=== PATIENT | female | born 1965 | race Caucasian/White ===

== ENCOUNTER → 2016-10-11 | Outpatient (CLI) | payer OTHER | LOC: FIMAGING 15:53 | DX: Z12.31 Encounter for screening mammogram for malignant neoplasm of breast (principal); Z92.0 Personal history of contraception | CPT/HCPCS: G0202 ==

== ENCOUNTER → 2016-10-21 | Outpatient (CLI) | payer OTHER | LOC: FIMAGING 08:50 | PROVIDERS: ATTEND Internal Medicine | DX: R92.8 Other abnormal and inconclusive findings on diagnostic imaging of breast (principal) | CPT/HCPCS: G0206 ==

== ENCOUNTER → 2016-11-28 | Outpatient (CLI) | payer OTHER | LOC: BMCIMAGING 12:57 | PROVIDERS: ATTEND Internal Medicine | DX: R10.9 Unspecified abdominal pain (principal); R07.9 Chest pain, unspecified; M54.9 Dorsalgia, unspecified ==

== ENCOUNTER → 2017-06-30 | Outpatient (CLI) | payer OTHER | LOC: FIMAGING 09:02 | PROVIDERS: ATTEND Surgery | DX: R92.1 Mammographic calcification found on diagnostic imaging of breast (principal) ==

== ENCOUNTER → 2017-10-13 | Outpatient (CLI) | payer OTHER | LOC: FIMAGING 08:49 | PROVIDERS: ATTEND Internal Medicine | DX: R92.1 Mammographic calcification found on diagnostic imaging of breast (principal) ==

== ENCOUNTER → 2018-02-05 | Outpatient (CLI) | payer OTHER | LOC: FIMAGING 10:08 | PROVIDERS: ATTEND Internal Medicine | DX: Z13.820 Encounter for screening for osteoporosis (principal); M85.88 Other specified disorders of bone density and structure, other site; Z78.0 Asymptomatic menopausal state ==

== ENCOUNTER → 2018-05-21 | Outpatient (CLI) | payer OTHER | LOC: BMCIMAGING 08:49 | PROVIDERS: ATTEND Nurse Practitioner Adult Health | DX: R10.11 Right upper quadrant pain (principal); R11.0 Nausea; I31.3 Pericardial effusion (noninflammatory) ==

== ENCOUNTER → 2018-06-19 | Outpatient (CLI) | payer OTHER | LOC: FIMAGING 09:32 | PROVIDERS: ATTEND Physician Assistant | DX: K82.8 Other specified diseases of gallbladder (principal) | CPT/HCPCS: 78227; A9537 ==

== ENCOUNTER 2018-07-03 05:37 | Observation (INO) | payer OTHER ==
[2018-07-03] MEDS ORDERED: cefOXitin SODIUM 2 GM in NS 100 ML IV ONE (06:00)
[2018-07-03] MEDS ORDERED: LR 1,000 ML IV ONE (06:04)
[2018-07-03] MEDS ORDERED: BUPIVACAINE 0.5% 30 ML SDV ONE (06:55)
[2018-07-03] MEDS ORDERED: HEPARIN 1000 UNIT/1 ML MDV ONE (06:55)
[2018-07-03] MEDS ORDERED: ceFAZolin 1 GM/5 ML SYR ONE (06:56)
--- NOTE | 2018-07-03 07:05 | PDHPUP ---
History & Physical Update H&P update statement: This history and physical update is based on an assessment of the patient which was completed after admission or registration (within 24 hours), but prior to the surgery/procedure. H&P update: H&P reviewed & patient examined, no change in patient's condition since H&P completed
[2018-07-03] MEDS ORDERED: MIDAZOLAM 2 MG/2 ML VIAL ONE (07:10)
[2018-07-03] MEDS ORDERED: MIDAZOLAM 2 MG/2 ML VIAL IVP ONE (07:14)
--- NOTE | 2018-07-03 07:15 | PDANEPAE ---
ANE Past Medical History - Cardiovascular History Hx Hypertension: No Hx Arrhythmias: No Hx Chest Pain: No Hx Coronary Artery / Peripheral Vascular Disease: No Hx CHF / Valvular Disease: No Hx Palpitations: No Cardiovascular History Comment: BP can run low - Pulmonary History Hx COPD: No Hx Asthma/Reactive Airway Disease: No Hx Recent Upper Respiratory Infection: No Hx Oxygen in Use at Home: No Hx Sleep Apnea: No Sleep Apnea Screening Result - Last Documented: Negative - Neurologic History Hx Cerebrovascular Accident: No Hx Seizures: No Hx Dementia: No - Endocrine History Hx Diabetes: No Obesity: no - Renal History Hx Renal Disorders: No - Liver History Hx Hepatic Disorders: No - Neurological & Psychiatric Hx Hx Neurological and Psychiatric Disorders: No - Cancer History Hx Cancer: No - Congenital Disorder History Hx Congenital Disorders: No - GI History GERD: no Hx Gastrointestinal Disorders: Yes Gastrointestinal History Comment: 23% EF gall bladder. nausea, vomiting 07/02 - Other Health History Other Health History: CITIZEN [place]. SORE THROAT CURRENTLY. none - Chronic Pain History Chronic Pain: No - Surgical History Prior Surgeries: bipopsy ANE Review of Systems Review of Systems: - Exercise capacity METS (RN): 5 METS ANE Patient History - Allergies Allergies/Adverse Reactions: Sulfa (Sulfonamide Antibiotics) Allergy (Verified 09/23/12 13:23) NAUSEA, VOMITING, RASH - Home Medications Home medications: home medication list seen and reviewed Home Medications: NK [No Known Home Meds] 07/03/18 [Last Taken Unknown] - NPO status NPO Status: no food or drink >8 hours NPO Since - Liquids (Date): 07/02/18 NPO Since - Liquids (Time): 21:00 NPO Since - Solids (Date): 07/02/18 NPO Since - Solids (Time): 17:30 - Anes Hx Anes Hx: post operative nausea - Smoking Hx Smoking Status: Never smoked - Family Anes Hx Family Hx Anesthesia Complications: none ANE Labs/Vital Signs - Labs Result Diagrams: 07/03/18 06:03 - Vital Signs Blood Pressure: 159/86 Heart Rate: 42 Respiratory Rate: 14 O2 Sat (%): 97 Height: 162.56 cm Weight: 53.524 kg ANE Physical Exam - Airway Neck exam: FROM Mallampati Score: Class 1 Mouth exam: normal dental/mouth exam - Pulmonary Pulmonary: no respiratory distress, no rales or rhonchi, clear to auscultation - Cardiovascular Cardiovascular: regular rate and rhythym, no murmur, rub, or gallop - ASA Status ASA Status: II ANE Anesthesia Plan Anesthesia Plan: general endotracheal anesthesia
[2018-07-03] MEDS ORDERED: fentaNYL 100 MCG/2 ML INJ ONE (07:17)
[2018-07-03] MEDS ORDERED: PROPOFOL 200 MG/20 ML VIAL ONE (07:17)
[2018-07-03] MEDS ORDERED: ROCURONIUM 50 MG/5 ML VIAL ONE (07:31)
[2018-07-03] MEDS ORDERED: DEXAMETHASONE 4 MG/ML VIAL ONE ×2 (07:31)
[2018-07-03] MEDS ORDERED: LIDOCAINE 2% 2 ML INJ ONE (07:31)
[2018-07-03] MEDS ORDERED: ONDANSETRON 4 MG/2 ML VIAL ONE (07:31)
[2018-07-03] MEDS ORDERED: fentaNYL 100 MCG/2 ML INJ IVP PRN (08:04)
[2018-07-03] MEDS ORDERED: ACETAMINOPHEN 500 MG TAB PO PRN (08:04)
[2018-07-03] MEDS ORDERED: HYDROCODONE/APAP 5/325 TAB PO PRN (08:04)
[2018-07-03] MEDS ORDERED: MEPERIDINE 25 MG/0.5 ML AMP IVP PRN (08:04)
[2018-07-03] MEDS ORDERED: ONDANSETRON 4 MG/2 ML VIAL IVP PRN (08:04)
[2018-07-03] MEDS ORDERED: PROMETHAZINE HCL 25 MG/ML INJ IVP PRN (08:04)
[2018-07-03] MEDS ORDERED: oxyCODONE IR 5 MG TAB PO PRN (08:04)
[2018-07-03] MEDS ORDERED: LR 500 ML IV PRN (08:04)
[2018-07-03] MEDS ORDERED: NALOXONE HCL 0.4 MG/ML INJ IVP PRN (08:04)
[2018-07-03] MEDS ORDERED: METOCLOPRAMIDE 10 MG/2 ML VIAL IVP PRN (08:04)
[2018-07-03] MEDS ORDERED: GLYCOPYRROLATE 0.2 MG/1 ML VIAL ONE ×2 (08:09→08:16)
[2018-07-03] MEDS ORDERED: NEOSTIGMINE METHYLSULFATE 5 MG/5 ML SYR ONE (08:09)
--- NOTE | 2018-07-03 08:24 | POSTOPPROG ---
Post Op Note Date of Operation: 07/03/18 Surgeon: Luis Antonio Garzon Tax Analyst: Javi Anesthesiologist: Chasity Anesthesia: GET(General Endotracheal) Pre-op Diagnosis: Biliary dyskinesia, elevated LFTs Post-op Diagnosis: same Indication: RUQ pain Procedure: Lap zoe, liver biopsy Findings: healthy appearing liver and gallbladder Inf/Abcess present in the surg proc area at time of surgery?: No Depth: Organ Space EBL: Minimal Specimen(s): Gallbladder Liver biopsy
[2018-07-03] MEDS ORDERED: HYDROCODONE/APAP 5/325 TAB ONE (08:51)
--- NOTE | 2018-07-03 08:55 | POSTANESTH ---
Post Anesthetic Evaluation Cardiovascular Status: Similar to Pre-Op Cond Respiratory Status: Normal, Stable, Similar to Pre-op Cond. Level of Consciousness/Mental Status: Can Participate in Eval, Alert and Oriented Pain Control: Adequate, Prn Tx Ordered Nausea/Vomiting Control: Adequate, Prn Tx Ordered Complications Possibly Related to Anesthesia: None Noted
[2018-07-03] MEDS ORDERED: LABETALOL HCL 5 MG/ML 20 ML MDV ONE (09:13)
[2018-07-03] MEDS ORDERED: LABETALOL HCL 5 MG/ML 20 ML MDV IVP ONE (09:18)
[2018-07-03] MEDS ORDERED: ENALAPRILAT DIHYDRATE 1.25 MG/ML VIAL IVP PRN (09:28)
[2018-07-03] MEDS ORDERED: ENALAPRILAT DIHYDRATE 1.25 MG/ML VIAL ONE (09:32)
[2018-07-03] MEDS ORDERED: MEPERIDINE 25 MG/0.5 ML AMP ONE (09:40)
[2018-07-03] MEDS ORDERED: KETOROLAC 30 MG/1 ML SDV IVP ONE (10:53)
[2018-07-03] MEDS ORDERED: DIAZEPAM 5 MG/ML 1 ML SYR IVP PRN (10:58)
[2018-07-03] MEDS ORDERED: KETOROLAC 30 MG/1 ML SDV ONE (11:10)
[2018-07-03] MEDS ORDERED: traMADol 50 MG TAB PO PRN (12:38)
--- NOTE | 2018-07-03 16:39 | ASMTCMCOM ---
CM Note CM Note Notes: Chart review conducted. Pt admitted for post op pain control for cholecystectomy today with no significant medical history. Pt lives independently and has a sister in town. Anticipate pt will discharge independently. CM to follow. D/C Plan: Independent Date Signed: 07/03/2018 04:38 PM Electronically Signed By:Brittani Baez
[2018-07-03] MEDS ORDERED: ALPRAZolam 0.5 MG TAB PO PRN (17:12)
[2018-07-03] MEDS: KETOROLAC 15 MG/1 ML SDV IVP SCH (17:58)
[2018-07-03] MEDS: ACETAMINOPHEN 325 MG TAB PO PRN (23:03)
[2018-07-04] MEDS: KETOROLAC 15 MG/1 ML SDV IVP SCH (00:36)
[2018-07-04] MEDS ORDERED: IBUPROFEN 600 MG TAB PO PRN (00:38)
[2018-07-04 02:55] LABS: PLATELET COUNT 169 10^3/uL (150-400)
[2018-07-04] MEDS ORDERED: PROTOCOL POTASSIUM 1 DOSE MISC PRN (03:20)
--- NOTE | 2018-07-04 03:21 | HOSPPROG ---
Hospitalist Progress Note Assessment/Plan: Nat Escobar is a 53 yo F who is s/p lap zoe on 07/03, consulted overnight for bradycardia and chest pain. Bradycardia - Appears baseline HR is 50's since admission - HR dropped to 30's per RN - Reviewed EKG and telemetry, no signs of pauses/heart block - BP WNL - Continue to monitor on telemetry Chest Pain - Onset this evening, sharp in quality, likely in setting of surgery yesterday - EKG without ischemic changes, bradycardia as noted above - Troponin negative Hypokalemia - K 3.0, repeat 3.5 this AM - Will order K replacement protocol Thank you for the consult. Please contact us with questions or concerns. Objective: Vital Signs Temp Pulse Resp BP Pulse Ox 36.6 C 50 L 14 158/75 H 100 07/04/18 02:10 07/04/18 02:10 07/04/18 02:10 07/04/18 02:10 07/04/18 02:10 Laboratory Results 07/04/18 02:45 07/04/18 02:45 07/02/18 07/03/18 07/04/18 05:59 05:59 05:59 Intake Total 700 Output Total 1520 Balance -820 - Physical Exam Constitutional: no apparent distress Eyes: PERRL Ears, Nose, Mouth, Throat: moist mucous membranes Cardiovascular: bradycardia Respiratory: no respiratory distress Gastrointestinal: tenderness Skin: warm Musculoskeletal: full muscle strength Neurologic: AAOx3 Psychiatric: interacting appropriately ICD10 Worksheet Patient Problems: Problems Problem Status Onset Biliary dyskinesia Acute
[2018-07-04] MEDS ORDERED: POTASSIUM CL 10 MEQ TAB PO ONE ×3 (04:10→09:30)
[2018-07-04] MEDS ORDERED: NS 1,000 ML IV SCH (04:30)
[2018-07-04] MEDS: ACETAMINOPHEN 325 MG TAB PO PRN ×2 (06:31→12:20)
[2018-07-04] MEDS ORDERED: MAGNESIUM HYDROXIDE 30 ML UDCUP PO ONE (09:43)
--- NOTE | 2018-07-04 09:59 | SOAPPROG ---
SOAP Progress Note Assessment/Plan: Assessment: 53 y/o F s/p lap zoe for biliary dyskinesia POD #1 Bradycardia. per pt, normal HR is in the 50s. Stat team was called last night. EKG, troponins negative. No chest pain now. Hypokalemia. K protocol. Most recent K 3.3. Repeat labs prior to discharge. New onset hypertension. BP now 150s/80s. Pt has appointment to follow up with her PCP on Friday. Constipation. Milk of mag ordered prior to discharge. S: Feeling well this morning, just worn out from eventful night. Denies chest pain. Incisional pain controlled. Not passing gas yet. O: Alert Afebrile BP stable RRR No increased wob Abdomen: soft, nontender, nondistended, incision sites cdi, hypoactive BS Plan: Dispo home today with sister. Repeat K+ prior to discharge. Pt to follow up with PCP on Friday regarding HTN. 07/04/18 09:55 Objective: Vital Signs Temp Pulse Resp BP Pulse Ox 36.7 C 45 L 10 L 152/86 H 95 07/04/18 09:12 07/04/18 09:12 07/04/18 09:12 07/04/18 09:12 07/04/18 09:12 Laboratory Results 07/04/18 02:45 07/04/18 04:55 07/03/18 07/04/18 07/05/18 05:59 05:59 05:59 Intake Total 1050 Output Total 1520 Balance -470 ICD10 Worksheet Patient Problems: Problems Problem Status Onset Biliary dyskinesia Acute - ICD10 Problem Qualifiers (1) Biliary dyskinesia
--- NOTE | 2018-07-04 10:27 | ASDISCHSUM ---
Discharge Information Plan Status:Home with No Needs Medically Cleared to Leave:07/03/2018 Discharge Date:07/03/2018 CM D/C Disposition:Home, Routine, Self-Care ADT D/C Disposition:Home, Routine, Self-Care Projected Discharge Date:07/03/2018 Transportation at D/C: Discharge Delay Reason: Follow-Up Date:07/03/2018 Discharge Slot: Final Diagnosis: Placement Information Patient Contact Information Contact Name:CAMILLA Relationship:Sister Address:[address] City:[place] Alternate Phone: [facility]/Zip Code:[place] [address] Email: Financial Information Financial Class:HMO and PPO Plans Primary Plan Desc:[employer] Primary Plan Number:[id number] Secondary Plan Desc: Secondary Plan Number: Assessment Information [facility] CM Progress Note CM Note CM Note Notes: Chart review conducted. Pt admitted for post op pain control for cholecystectomy today with no significant medical history. Pt lives independently and has a sister in town. Anticipate pt will discharge independently. CM to follow. D/C Plan: Independent Date Signed: 07/03/2018 04:38 PM Electronically Signed By:Brittani Baez Intervention Information
--- NOTE | 2018-07-04 10:30 | ASMTDCNOTE ---
Case Management Discharge Discharge Order Complete? Answers: Yes Patient to Obtain Answers: Independently Medications Transportation Arranged Answers: Family/Friends Family Notified Answers: Yes Discharge Comments Notes: Medically lceared for discharge, No needs at this time. Date Signed: 07/04/2018 10:29 AM Electronically Signed By:Shilpi Valencia RN
[2018-07-04 11:43] VITALS: BP 137/74
--- NOTE | 2018-07-04 15:22 | HOSPPROG ---
Hospitalist Progress Note Assessment/Plan: Subjective Follow-up on bradycardia and elevated blood pressure readings. Patient's sister was present with her at the bedside today. We reviewed her elevated blood pressures over noted after surgery yesterday. She has had some systolic readings into the 150s this morning in the absence of any significant abdominal pain. I recommended that she obtain a home blood pressure cuff and start recording random blood pressure readings. I recommend that she bring a log to her upcoming visit with her primary care provider Dr. Sujey Voss. Postoperatively she had a systolic reading of 200 and did receive labetalol which may have contributed to some bradycardia overnight but I suspect her baseline heart rate is in the 50s. She does state that she exercises every day. She was asymptomatic with the bradycardia and her ECG showed sinus Mahamed. Otherwise no complaints of chest pains at the time of my evaluation. No significant abdominal pain. Objective Vital signs as detailed below Exam General-awake alert conversant no acute distress Heart-regular rate and rhythm no murmurs Lungs-Clear to auscultation with normal respiratory effort Abdomen-soft nontender nondistended normal bowel sounds -no Urena catheter in place Extremities-no significant pitting edema or calf pain with palpation Skin-no concerning skin rashes noted Labs as detailed below Assessment and plan Bradycardia-asymptomatic. I suspect this is her baseline. Hypokalemia-improved. I anticipate this will resolve as she resumes a normal diet after hospital discharge. Chest pain-ECG was not suggestive of any ischemic changes and troponin was negative. This has resolved. This may have been related to postoperative pain. Biliary dyskinesia-patient is status post cholecystectomy. She appears to be doing well postoperatively. DVT prophylaxis-compression devices. Disposition-she appears stable to discharge home from a medical standpoint. The tentative plan from surgeries discharge home today. Objective: Vital Signs Temp Pulse Resp BP Pulse Ox 36.7 C 56 L 11 L 137/74 H 96 07/04/18 11:42 07/04/18 11:42 07/04/18 11:42 07/04/18 11:42 07/04/18 11:42 Laboratory Results 07/04/18 02:45 07/04/18 11:00 07/03/18 07/04/18 07/05/18 05:59 05:59 05:59 Intake Total 1050 Output Total 1520 Balance -470 ICD10 Worksheet Patient Problems: Problems Problem Status Onset Biliary dyskinesia Acute
--- NOTE | 2018-07-05 14:30 | CPEKG ---
Test Reason : OPEN Blood Pressure : / mmHG Vent. Rate : 052 BPM Atrial Rate : 052 BPM P-R Int : 154 ms QRS Dur : 083 ms QT Int : 508 ms P-R-T Axes : 064 019 052 degrees QTc Int : 473 ms Sinus rhythm Confirmed by Nixon Bright ([id number]) on 07/05/2018 2:30:01 PM Referred By: Confirmed By:Nixon Bright
--- NOTE | 2018-07-05 14:37 | CPEKG ---
Test Reason : OPEN Blood Pressure : / mmHG Vent. Rate : 042 BPM Atrial Rate : 000 BPM P-R Int : 152 ms QRS Dur : 082 ms QT Int : 560 ms P-R-T Axes : 051 048 060 degrees QTc Int : 468 ms Sinus bradycardia Low voltage, extremity leads Confirmed by Nixon Bright ([id number]) on 07/05/2018 2:36:54 PM Referred By: Confirmed By:Nixon Bright
--- NOTE | 2018-07-05 14:38 | CPEKG ---
Test Reason : OPEN Blood Pressure : / mmHG Vent. Rate : 051 BPM Atrial Rate : 051 BPM P-R Int : 157 ms QRS Dur : 085 ms QT Int : 523 ms P-R-T Axes : 063 031 051 degrees QTc Int : 482 ms Sinus rhythm Confirmed by Nixon Bright ([id number]) on 07/05/2018 2:37:12 PM Referred By: Confirmed By:Nixon Bright
--- NOTE | 2018-07-06 15:49 | GOP ---
DATE OF OPERATION: 07/03/2018 SURGEON: Luis Antonio Garzon MD PREOPERATIVE DIAGNOSIS: Elevated liver function tests and biliary dyskinesia. POSTOPERATIVE DIAGNOSIS: Elevated liver function tests and biliary dyskinesia. PROCEDURE PERFORMED: Laparoscopic cholecystectomy and wedge liver biopsy. FINDINGS: The patient was found to have a dilated but noninflamed gallbladder with no obvious stones and no adhesions to the gallbladder. The liver appeared to be grossly normal. ESTIMATED BLOOD LOSS: Negligible. She was taken to recovery room in good condition. DESCRIPTION OF PROCEDURE: The patient was taken to the operating room where she received satisfactor y general endotracheal anesthesia by Dr. Schilling. She was placed in supine position, prepped and drap ed in the usual sterile fashion. A periumbilical incision was made. A Veress needle inserted. Pneu moperitoneum was established. Trocar was introduced. Laparoscope introduced. Good visualization wa s obtained. Three other trocars placed in the upper abdomen under direct vision. The gallbladder wa s elevated up and the cystic triangle was carefully exposed. The cystic duct and cystic artery were isolated. A good clear view was obtained, both structures were multiply hemoclipped and divided with care to avoid injury to the common bile duct, which was clearly visualized. The peritoneum of the g allbladder was incised. The gallbladder was dissected free from the bed in the hepatic fossa and ext racted through the upper midline port site. Hemostasis was assured. A wedge biopsy was taken of the right lobe of the liver. Wound was controlled with electrocautery. Hemostasis was assured. The wo und was irrigated. Trocars removed under direct vision. Trocar sites were closed with 0 Vicryl for the fascia, 4-0 Monocryl subcuticular stitch for the skin. All layers infiltrated with 0.5% Marcaine . /[id number]/MODL
== END 2018-07-04 13:14 | disposition home or self-care (01) ==
LOC: FSGY 05:37 → INTOOBSV 12:35 → F3E 12:35 → F1N 13:16
PROVIDERS: ADMIT Surgery; ATTEND Surgery
PROC: 0FB10ZX Excision of Right Lobe Liver, Open Approach, Diagnostic (ICD-10-PCS; principal; 2018-07-03 07:15)
PROC: 0FT44ZZ Resection of Gallbladder, Percutaneous Endoscopic Approach (ICD-10-PCS; principal; 2018-07-03 07:15)
DX: K82.8 Other specified diseases of gallbladder (principal); R94.5 Abnormal results of liver function studies; R00.1 Bradycardia, unspecified; E87.6 Hypokalemia; K59.00 Constipation, unspecified
CPT/HCPCS: 47379; 47562; 93005; G0378; J0694; J1100; J1885; J2175; J2250; J2270; J2405; J2704; J2710; J3010

== ENCOUNTER 2018-07-05 19:46 | Observation (INO) | payer OTHER ==
--- NOTE | 2018-07-05 20:10 | EDPHY ---
H & P Stated Complaint: cholecystectomy on friday now having HTN and right arm pain Source: Patient Exam Limitations: No limitations - Personal History LMP (Females 10-55): Post Menopausal Current Tetanus/Diphtheria Vaccine: Unsure Current Tetanus Diphtheria and Acellular Pertussis (TDAP): Unsure - Medical/Surgical History Hx Asthma: No Hx Chronic Respiratory Disease: No Hx Diabetes: No Hx Cardiac Disease: No Hx Renal Disease: No Hx Cirrhosis: No Hx Alcoholism: No Hx HIV/AIDS: No Hx Splenectomy or Spleen Trauma: No Other PMH: brain hemorrhage, hearing damage, GI Issues, gallbladder issues, cholecystectomy - Social History Smoking Status: Never smoked Time Seen by Provider: 07/05/18 20:03 HPI/ROS: HPI: This is a 53-year-old female who presents with Chief Complaint: cholecystectomy on Friday now having HTN and right arm pain Location: Right bicep Quality: Pain Duration: Starting this afternoon approximately 2-3 hours prior to arrival Signs and Symptoms: no shortness of breath at rest, no shortness of breath on exertion, no cough, no chest pain, no palpitations, no lower extremity edema, no wheezing, no orthopnea, no paroxysmal nocturnal dyspnea, no fever, no injury/ trauma, no hemoptysis, no carpal pedal spasms Timing: Acute, constant Severity: Moderate Context: Patient is status post laparoscopic cholecystectomy by Dr. Garzon this Friday on July 03, 2018 and discharged yesterday afternoon presents with sudden onset of right bicep dull aching pain that is described as constant moderate in nature that is nonradiating in nature. Patient reports that she had a complicated postop course with uncontrolled pain and bradycardia secondary to beta-kamran. Patient reports that she had trapped gas secondary to laparoscopic surgery which caused her pain. She was discharged home with tramadol but she has not taking any of this pain medication. Patient denies any radiation, weakness, paresthesias, shortness of breath, abdominal pain. Patient called General surgery on-call who advised to go to the emergency room to rule out right upper extremity blood clot. Patient reports"I just do not feel right." Modifying Factors: None Comment: ROS: A comprehensive 10 system review of systems is otherwise negative aside from elements mentioned in the history of present illness. MEDICAL/SURGICAL/SOCIAL HISTORY: Medical/Surgical history: brain hemorrhage, hearing damage, GI Issues, gallbladder issues, cholecystectomy Social history: Nonsmoker. CONSTITUTIONAL: Mild distress, nontoxic-appearing, talkative, middle-aged white female, awake and alert HEENT: Atraumatic and normocephalic, PERRL, EOMI. Nares patent; no rhinorrhea; no nasal mucosal edema. Tympanic membranes clear. Oropharynx clear, no exudate and moist pink mucosa. Airway patent. No lymphadenopathy. No meningismus. Cardiovascular: Normal S1/S2, regular rate, regular rhythm, without murmur rub or gallop. PULMONARY/CHEST: Symmetrical and nontender. Clear to auscultation bilaterally. Good air movement. No accessory muscle usage. ABDOMEN: Soft, Steri-Strips covering portal sites with no surrounding erythema or discharge, nondistended, nontender, no rebound, no guarding, no peritoneal signs, no masses or organomegaly. No CVAT. Bowel sounds heard x4 quadrants. EXTREMITIES: 2/2 pulses, strength 5/5, right SHOULDER: Arc test abduction to 180, abduction to 45, horizontal flexion 130, horizontal extension to 45, deltoid strength 5/5. No pain with Neer test/Hinds test (impingement). No Tenderness to palpation over AC joint. Right bicep shows reproducible pinpoint tenderness but no obvious swelling, deformity, skin color changes. Right and left bicep appeared to be the same size. no deformities, no clubbing, no cyanosis or edema. NEUROLOGICAL: no focal neuro deficits. GCS 15. SKIN: Warm and dry, no erythema. no rash. Good capillary refill. (Kacy Knowles) Constitutional: Initial Vital Signs Temperature (C) 36.4 C 07/05/18 19:49 Heart Rate 57 L 07/05/18 19:49 Respiratory Rate 16 07/05/18 19:49 Blood Pressure 169/87 H 07/05/18 19:49 O2 Sat (%) 98 07/05/18 19:49 O2 Delivery Mode Room Air Allergies/Adverse Reactions: Sulfa (Sulfonamide Antibiotics) Allergy (Verified 07/05/18 19:52) NAUSEA, VOMITING, RASH beta blockers Allergy (Uncoded 07/05/18 19:53) Home Medications: Medication Instructions Recorded Acetaminophen [Tylenol ES 500 mg 500 mg PO Q4HRS PRN 07/06/18 (*)] Polyethylene Glycol 3350 [Miralax 17 gm PO DAILY 01/14/19 17 gm (*)] hydrALAZINE [Apresoline 10 mg (*)] 10 mg PO PRN PRN 30 Days #30 tab 07/06/18 Medical Decision Making ED Course/Re-evaluation: Vital signs reviewed and are stable. Placed on speech communication instructor. EKG performed and show heart rate of 48 with shortened P or interval but no acute ischemic changes. IV access, laboratory studies, chest x-ray and right upper extremity ultrasound ordered Patient politely declined pain medication upon arrival EKG my read with attending shows sinus bradycardia rate of 40 beats per minute with short p.r. interval but no acute ischemic changes. 2025: Notified by RN that her primary care provider is concerned about pheochromocytoma versus renin producing tumor and requests workup. 2052: Notified by tech that TROP 0.00 2055: Labs reviewed. No signs of leukocytosis/anemia/platelet dysfunction/KYLE/ rhabdomyolysis/electrolyte imbalance/ACS. 2137: Called by radiologist, Dr. No who advised that right upper extremity ultrasound shows no deep venous thrombosis. Chest x-ray shows trace right pleural effusion. 2144: Went to bedside reviewed all laboratory studies and ultrasound results. IV fluids 1 L normal saline hung per request to patient and family. Patient does not feel comfortable going home with the right arm pain she believes that is due to trapped gas. Patient again politely declines any pain medications to be given. She is also concerned about her elevated blood pressure. She does not feel comfortable to go home this evening. 2146: ED decision to consult for admission. Spoke with hospitalist, Dr. Gooden , who kindly agrees to admit patient to overnight physician, Dr. Blas. This patient was seen under the supervision of my secondary supervising physician. I evaluated care for this patient with attending. Discussed this patient with Dr. Jim who did see the patient. (Kacy Knowles) I have evaluated and participated in the management of this patient. My co- signature indicates that I have reviewed this chart and that I agree with the findings and the plan of care as documented. My personal history and physical findings include: 53-year-old female who is status post recent laparoscopic cholecystectomy. She presents with right upper extremity pain, initially in the lateral biceps but, at the time of my interview, in the anterior shoulder. Ultrasound does not show DVT. She has had postoperative hypertension. A family friend who is an internal medicine physician has recommended a workup for pheochromocytoma. The patient is quite concerned about her hypertension, which is new for her. She remained hypertensive throughout her stay in the emergency department. She is also bradycardic. She is not comfortable returning home and will be admitted by the hospitalist service. At the time of my evaluation she was awake and alert, lungs clear, heart bradycardic in the high 40s, abdomen soft and mildly diffusely tender. No calf swelling or tenderness. No swelling of the right upper extremity. There is some tenderness with palpation of the right shoulder anteriorly. She has full active range of motion of the shoulder. I suggested to her that her shoulder discomfort might be related to the laparoscopic surgery and diaphragmatic irritation secondary to CO2. I recommended heat at the site of her pain. (Joslyn Jim) Differential Diagnosis: Differential diagnosis includes but is not limited to acute coronary syndrome, pulmonary embolism, DVT, electrolyte imbalance, muscle cramps, trapped gas, contusion. (Kacy Knowles) - Data Points Laboratory Results: Laboratory Results 07/05/18 20:20 07/05/18 20:20 Medications Given: Discontinued Medications Acetaminophen (Tylenol) 650 mg PO Q4HRS PRN PRN Reason: Pain, Mild/Fever, Can Take PO Stop: 01/01/19 23:13 Last Admin: 07/06/18 00:14 Dose: 650 mg Sodium Chloride (Ns) 1,000 mls @ 0 mls/hr IV EDNOW ONE; Wide Open PRN Reason: Protocol Stop: 07/05/18 21:49 Last Admin: 07/05/18 22:03 Dose: 1,000 mls Oxycodone HCl (Oxycodone Ir) 5 mg PO Q4HRS PRN PRN Reason: Pain, Breakthrough Stop: 07/16/18 03:23 Last Admin: 07/06/18 03:46 Dose: 5 mg Point of Care Test Results: Chemistry 07/05/18 20:42 POC Troponin I 0.00 ng/mL ng/mL (0.00-0.08) Departure - Departure Disposition: [facility] Inpatient Acute Clinical Impression: Sinus bradycardia by electrocardiogram, Essential hypertension, Intractable pain Arm pain, anterior Qualifiers: Laterality: right Qualified Code(s): M79.601 - Pain in right arm Condition: Good
[2018-07-05 20:41] LABS: PLATELET COUNT 170 10^3/uL (150-400)
[2018-07-05 20:53] LABS: CREATINE KINASE 79 IU/L (0-156)
[2018-07-05] MEDS ORDERED: NS 1,000 ML IV ONE (21:48)
[2018-07-05] MEDS ORDERED: ACETAMINOPHEN 325 MG TAB PO PRN (23:14)
[2018-07-05] MEDS ORDERED: ONDANSETRON 4 MG/2 ML VIAL IVP PRN (23:14)
[2018-07-05] MEDS ORDERED: ONDANSETRON DISINTEGRATING 4 MG TAB PO PRN (23:14)
--- NOTE | 2018-07-06 00:13 | CPEKG ---
Test Reason : OPEN Blood Pressure : / mmHG Vent. Rate : 048 BPM Atrial Rate : 048 BPM P-R Int : 102 ms QRS Dur : 085 ms QT Int : 490 ms P-R-T Axes : 000 058 058 degrees QTc Int : 438 ms Sinus bradycardia Short LA interval Low voltage, extremity leads Confirmed by Ochoa Encinas ([id number]) on 07/06/2018 12:13:04 AM Referred By: Confirmed By:Ochoa Encinas
--- NOTE | 2018-07-06 00:48 | PDGENHP ---
History and Physical - Chief Complaint right arm pain - History of Present Illness 53yo F who was just discharged from this hospital yesterday after elective cholecystectomy presents with right arm/shoulder pain and hypertension. Right shoulder and arm abruptly began to hurt today. Arms mostly hurts in biceps area. No erythema, swelling, distal weakness or numbness. Able to range shoulder and elbow. Has never had sensation like this before. Took tylenol with no relief. Was massaging shoulder which seemed to help some. She called the surgery PA who recommended she come into the ED to rule out a DVT. An ultrasound in the ED was negative for this. The patient continued to have pain however was denying pain medications except for tylenol. She is uncomfortable going home and believes she has "trapped gas" in her arm related to gas insufflation from her recent laparoscopic surgery. She was also mildly hypertensive and bradycardia in the ED. On review of last hospitalization, medicine was consulted for these issues. She was felt to have sinus bradycardia at baseline. She was instructed to obtain a BP cuff and follow up with her PCP, which she was planning on doing tomorrow (Friday). The patient had mentioned to a RN in the ED that her PCP was concerned about pheochromocytoma and was requesting being worked up for this however patient did not mention this to me. History Information - Allergies/Home Medication List Allergies/Adverse Reactions: Sulfa (Sulfonamide Antibiotics) Allergy (Verified 07/05/18 19:52) NAUSEA, VOMITING, RASH beta blockers Allergy (Uncoded 07/05/18 19:53) I have personally reviewed and updated: family history, medical history, social history, surgical history - Past Medical History Additional medical history: biliary dyskinesia - Surgical History Additional surgical history: cholecystectomy 06/2018 - Social History Smoking Status: Never smoked Alcohol Use: None Drug Use: None Review of Systems Review of Systems: ROS: 10pt was reviewed & negative except for what was stated in HPI & below Physical Exam Physical Exam: Temp Pulse Resp BP Pulse Ox 36.6 C 45 L 18 118/82 H 97 07/06/18 00:16 07/06/18 00:16 07/06/18 00:16 07/06/18 00:16 07/06/18 00:16 Constitutional: no apparent distress, appears nourished, not in pain Eyes: PERRL, anicteric sclera, EOMI Ears, Nose, Mouth, Throat: moist mucous membranes, hearing normal, ears appear normal, no oral mucosal ulcers Cardiovascular: no murmur, rub, or gallop, bradycardia, No edema Respiratory: no respiratory distress, no rales or rhonchi, clear to auscultation Gastrointestinal: normoactive bowel sounds, soft, non-tender abdomen, no palpable masses, other (lap zoe incision sites c/d/i) Genitourinary: no bladder fullness, no bladder tenderness Skin: warm, normal color, no rashes or abrasions, no induration, No erythema Musculoskeletal: full muscle strength, normal joint ROM, no joint effusions, other (tenderness over right upper arm) Neurologic: AAOx3 Psychiatric: interacting appropriately, not anxious, not encephalopathic, thought process linear Lab Data & Imaging Review 07/05/18 20:20 07/05/18 20:20 WBC 7.13 10^3/uL (3.80-9.50) 07/05/18 20:20 RBC 4.69 10^6/uL (4.18-5.33) 07/05/18 20:20 Hgb 14.5 g/dL (12.6-16.3) 07/05/18 20:20 Hct 42.4 % (38.0-47.0) 07/05/18 20:20 MCV 90.4 fL (81.5-99.8) 07/05/18 20:20 MCH 30.9 pg (27.9-34.1) 07/05/18 20:20 MCHC 34.2 g/dL (32.4-36.7) 07/05/18 20:20 RDW 12.5 % (11.5-15.2) 07/05/18 20:20 Plt Count 170 10^3/uL (150-400) 07/05/18 20:20 MPV 11.4 fL (8.7-11.7) 07/05/18 20:20 Neut % (Auto) 54.6 % (39.3-74.2) 07/05/18 20:20 Lymph % (Auto) 34.4 % (15.0-45.0) 07/05/18 20:20 [place] % (Auto) 8.6 % (4.5-13.0) 07/05/18 20:20 Eos % (Auto) 1.3 % (0.6-7.6) 07/05/18 20:20 Baso % (Auto) 1.0 % (0.3-1.7) 07/05/18 20:20 Nucleat RBC Rel Count 0.0 % (0.0-0.2) 07/05/18 20:20 Absolute Neuts (auto) 3.90 10^3/uL (1.70-6.50) 07/05/18 20:20 Absolute Lymphs (auto) 2.45 10^3/uL (1.00-3.00) 07/05/18 20:20 Absolute Monos (auto) 0.61 10^3/uL (0.30-0.80) 07/05/18 20:20 Absolute Eos (auto) 0.09 10^3/uL (0.03-0.40) 07/05/18 20:20 Absolute Basos (auto) 0.07 10^3/uL (0.02-0.10) 07/05/18 20:20 Absolute Nucleated RBC 0.00 10^3/uL (0-0.01) 07/05/18 20:20 Immature Gran % 0.1 % (0.0-1.1) 07/05/18 20:20 Immature Gran # 0.01 10^3/uL (0.00-0.10) 07/05/18 20:20 Sodium 139 mEq/L (135-145) 07/05/18 20:20 Potassium 3.9 mEq/L (3.5-5.2) 07/05/18 20:20 Chloride 103 mEq/L (97-110) 07/05/18 20:20 Carbon Dioxide 29 mEq/l (22-31) 07/05/18 20:20 Anion Gap 7 mEq/L (6-14) 07/05/18 20:20 BUN 16 mg/dL (7-23) 07/05/18 20:20 Creatinine 1.0 mg/dL (0.6-1.0) 07/05/18 20:20 Estimated GFR 58 07/05/18 20:20 Glucose 89 mg/dL (70-100) 07/05/18 20:20 Calcium 9.4 mg/dL (8.5-10.4) 07/05/18 20:20 Magnesium 2.4 mg/dL (1.6-2.3) H 07/05/18 20:20 Creatine Kinase 79 IU/L (0-156) 07/05/18 20:20 POC Troponin I 0.00 ng/mL (0.00-0.08) 07/05/18 20:42 Visualized and Interpreted Chest x-ray results: Yes Visualized and Interpreted imaging results: Yes Interpretation: CXR: no infiltrate, possible tiny right pleural effusion, right humerus and shoulder appear normal in this 1-view Visualized and Interpreted EKG results: Yes EKG additional interpertation: ECG: sinus bradycardia, no AV block, no ischemia Assessment & Plan Assessment: 53yo F who was just discharged from this hospital yesterday after elective cholecystectomy presents with right arm/shoulder pain and hypertension. Plan: 1. Acute right shoulder/arm pain: Possibly referred pain from phrenic nerve irritation with recent gallbladder surgery. US negative for DVT. I re-assured her that I do not think she has an air embolus related to her recent surgery. CK normal makes myositis unlikely. - I do not think additional diagnostic testing is warranted given her completely normal exam - Heat packs, flexeril PRN 2. Hypertension: Suspect related to pain and recent surgery as previously normal. Very low suspicion for rare etiology such as pheochromocytoma or renin- producing tumor (she reportedly had some concerns for these). - Agree with prior hospitalists' assessment of keeping BP log and following up with PCP (which she is doing) - Hold on starting anti-hypertensive at this time 3. Sinus bradycardia: Asymptomatic. No pauses/heart block on ECG. Chronic and at baseline. - Avoid beta blockers for BP 4. s/p cholecystectomy: Lap sites look good. Tylenol PRN for pain. VTE ppx: Code: full Diet: regular Dispo: Admit under observation. She has PCP appointment Friday at noon, possibly discharge prior to this.
[2018-07-06] MEDS ORDERED: CYCLOBENZAPRINE 10 MG TAB PO PRN (01:16)
[2018-07-06] MEDS ORDERED: oxyCODONE IR 5 MG TAB PO PRN (03:24)
[2018-07-06] MEDS ORDERED: ENOXAPARIN 40 MG/0.4 ML SYR SC SCH (09:00)
--- NOTE | 2018-07-06 11:23 | SOAPPROG ---
SOAP Progress Note Assessment/Plan: Assessment: 53 y/o F s/p lap zoe POD #3. Had somewhat complicated postop course with new onset hypertension, hypokalemia and bradycardia. Stat team called last visit for bradycardia. Cardiac workup was negative. Now admitted for focal right upper arm pain and persistent HTN. US in ED negative for DVT. Pt reports it started in her shoulder and moved down her arm yesterday afternoon. Unlikely that it is related to insufflation gas 3 days postop. S: Feeling a little better now after oxycodone, but still has some pain in right upper outer arm. Pt's sister at bedside, who reports that they have requested a nephrology consult for new onset HTN. O: Alert Afebrile HR 64 BP 130s/60s K+ 3.9 RRR CTAB, no increased WOB Abdomen: soft, nontender, incisions cdi, normoactive BS RUE: tender to palpation upper arm, no swelling, +radial pulse, sensation intact , normal strength Plan: Dispo: continue inpt status. Appreciate hospitalist and nephrology input. 07/06/18 11:23 Objective: Vital Signs Temp Pulse Resp BP Pulse Ox 36.7 C 64 16 134/67 H 95 07/06/18 07:48 07/06/18 09:06 07/06/18 09:06 07/06/18 09:06 07/06/18 09:06 07/05/18 07/06/18 07/07/18 05:59 05:59 05:59 Intake Total 1150 Balance 1150 ICD10 Worksheet Patient Problems: Problems Problem Status Onset Arm pain, anterior Acute Essential hypertension Acute Intractable pain Acute Sinus bradycardia by electrocardiogram Acute Biliary dyskinesia Acute
--- NOTE | 2018-07-06 11:53 | PDCONSULT ---
Edge Stripper Note: Assessment/Plan: Elevated BP without diagnosis of HTN: Pt has had HTN in the past few days in setting of cholecystectomy as well as now severe pain in R arm. She has never been hypertensive before. She could have high blood pressure from multiple things, including meds around surgery, fluids given, pain and stress. I discussed with pt that secondary workup is not indicated and this time, nor would it be helpful as she had just undergone surgery. Her renal function is stable. - I would send pt home with hydralazine 10mg tabs that she can take up to TID as needed. - I advised pt to check her BP twice a day for now and take hydralazine for SBP >170. - I will f/u with pt in clinic in a few weeks to review her BP measurements. Thank you for the interesting consult. Nephrology will continue to follow pt as outpatient, please call if you have any additional questions or concerns. H & P Stated Complaint: cholecystectomy on friday now having HTN and right arm pain Time Seen by Provider: 07/05/18 20:03 HPI/ROS: HPI: Ms. Escobar is a 53 yo F with no PMH of HTN who presented to ER yesterday with arm pain and high blood pressure. Pt had a cholecystectomy done on Friday electively. After her surgery, she had HTN, states her SBP got up to 200s, was given a BB and her HR dropped to 30s. She was discharged on Friday. Pt states that she was checking her BP at home through the weekend and was consistently 170s, and then on Friday developed R shoulder and arm pain that was severe. She had US done that showed no blood clot. Her SBP got as high as 180s yesterday, had gotten 1L NS in ER. Her SBP was 160s when I started to speak with her, BP came down to 149/856 during our discussion. She states that she was followed yearly by a physician, never been hypetensive before, SBP usually runs in 100s. She has had no episodes of sweating or palpitations, no tachycardia recorded. ROS: positive per HPI, rest of 10-point ROS negative - Personal History LMP (Females 10-55): Post Menopausal Current Tetanus/Diphtheria Vaccine: Unsure Current Tetanus Diphtheria and Acellular Pertussis (TDAP): Unsure - Medical/Surgical History Hx Asthma: No Hx Chronic Respiratory Disease: No Hx Diabetes: No Hx Cardiac Disease: No Hx Renal Disease: No Hx Cirrhosis: No Hx Alcoholism: No Hx HIV/AIDS: No Hx Splenectomy or Spleen Trauma: No Other PMH: brain hemorrhage, hearing damage, GI Issues, gallbladder issues, cholecystectomy - Family History Significant Family History: No pertinent family hx - Social History Smoking Status: Never smoked - Physical Exam Exam: General: alert and oriented, no acute distress Eyes: EOMI, PERRL OP: Clear, MMM Neck: supple, no thyromegaly CV: RRR, no edema BLE Resp: CTA bilat, nonlabored respirations Abd: Soft, ND Neuro: CN II-XII Grossly intact, no asterixis Psych: cooperative appropriate mood and affect Skin: C/D/I, no rash Constitutional: Initial Vital Signs Temperature (C) 36.4 C 07/05/18 19:49 Heart Rate 57 L 07/05/18 19:49 Respiratory Rate 16 07/05/18 19:49 Blood Pressure 169/87 H 07/05/18 19:49 O2 Sat (%) 98 07/05/18 19:49 O2 Delivery Mode Room Air Allergies/Adverse Reactions: Sulfa (Sulfonamide Antibiotics) Allergy (Verified 07/05/18 19:52) NAUSEA, VOMITING, RASH beta blockers Allergy (Uncoded 07/05/18 19:53) Home Medications: Medication Instructions Recorded Acetaminophen [Tylenol ES 500 mg 500 mg PO Q4HRS PRN 07/06/18 (*)] Polyethylene Glycol 3350 [Miralax 17 gm PO DAILY 07/06/18 17 gm (*)] Lab and Imaging 07/05/18 20:20 07/05/18 20:20 WBC 7.13 10^3/uL (3.80-9.50) 07/05/18 20:20 RBC 4.69 10^6/uL (4.18-5.33) 07/05/18 20:20 Hgb 14.5 g/dL (12.6-16.3) 07/05/18 20:20 Hct 42.4 % (38.0-47.0) 07/05/18 20:20 MCV 90.4 fL (81.5-99.8) 07/05/18 20:20 MCH 30.9 pg (27.9-34.1) 07/05/18 20:20 MCHC 34.2 g/dL (32.4-36.7) 07/05/18 20:20 RDW 12.5 % (11.5-15.2) 07/05/18 20:20 Plt Count 170 10^3/uL (150-400) 07/05/18 20:20 MPV 11.4 fL (8.7-11.7) 07/05/18 20:20 Neut % (Auto) 54.6 % (39.3-74.2) 07/05/18 20:20 Lymph % (Auto) 34.4 % (15.0-45.0) 07/05/18 20:20 [place] % (Auto) 8.6 % (4.5-13.0) 07/05/18 20:20 Eos % (Auto) 1.3 % (0.6-7.6) 07/05/18 20:20 Baso % (Auto) 1.0 % (0.3-1.7) 07/05/18 20:20 Nucleat RBC Rel Count 0.0 % (0.0-0.2) 07/05/18 20:20 Absolute Neuts (auto) 3.90 10^3/uL (1.70-6.50) 07/05/18 20:20 Absolute Lymphs (auto) 2.45 10^3/uL (1.00-3.00) 07/05/18 20:20 Absolute Monos (auto) 0.61 10^3/uL (0.30-0.80) 07/05/18 20:20 Absolute Eos (auto) 0.09 10^3/uL (0.03-0.40) 07/05/18 20:20 Absolute Basos (auto) 0.07 10^3/uL (0.02-0.10) 07/05/18 20:20 Absolute Nucleated RBC 0.00 10^3/uL (0-0.01) 07/05/18 20:20 Immature Gran % 0.1 % (0.0-1.1) 07/05/18 20:20 Immature Gran # 0.01 10^3/uL (0.00-0.10) 07/05/18 20:20 Sodium 139 mEq/L (135-145) 07/05/18 20:20 Potassium 3.9 mEq/L (3.5-5.2) 07/05/18 20:20 Chloride 103 mEq/L (97-110) 07/05/18 20:20 Carbon Dioxide 29 mEq/l (22-31) 07/05/18 20:20 Anion Gap 7 mEq/L (6-14) 07/05/18 20:20 BUN 16 mg/dL (7-23) 07/05/18 20:20 Creatinine 1.0 mg/dL (0.6-1.0) 07/05/18 20:20 Estimated GFR 58 07/05/18 20:20 Glucose 89 mg/dL (70-100) 07/05/18 20:20 Calcium 9.4 mg/dL (8.5-10.4) 07/05/18 20:20 Magnesium 2.4 mg/dL (1.6-2.3) H 07/05/18 20:20 Creatine Kinase 79 IU/L (0-156) 07/05/18 20:20 POC Troponin I 0.00 ng/mL (0.00-0.08) 07/05/18 20:42
[2018-07-06 12:42] VITALS: BP 149/86
--- NOTE | 2018-07-06 13:03 | PDDCSUM ---
Discharge Summary Discharge Summary: Nat Escobar was admitted after a lap zoe with right arm pain. This was felt to be due to residual air in her peritoneal cavity from her zoe. All workup was negative. She was hypertensive here intermittently. Her PCP insisted that she needed to be evaluated for a possible Pheochromocytoma. Nephrology was consulted who felt that it was extremely unlikely that she had a pheo and her picture did not fit that diagnosis. Renal recommended starting low dose hydralazine 10mg PO PRN systolic over 170, and follow up in clinic. Patient was discharged home in good condition to follow up with her PCP and nephro discharge diagnosis HTN Right arm pain status post laprascopic cholecystectomy new medicaions -hydralazine 10mg PO sig one tablet po PRN systolic over 170, up to TID.
--- NOTE | 2018-07-06 13:44 | ASDISCHSUM ---
Discharge Information Plan Status:Home with No Needs Medically Cleared to Leave:07/05/2018 Discharge Date:07/05/2018 CM D/C Disposition:Home, Routine, Self-Care ADT D/C Disposition:Home, Routine, Self-Care Projected Discharge Date:07/05/2018 Transportation at D/C: Discharge Delay Reason: Follow-Up Date:07/05/2018 Discharge Slot: Final Diagnosis: Placement Information Patient Contact Information Contact Name:CAMILLA Relationship:Sister Address:[address] City:[place] Alternate Phone: [facility]/Zip Code:[place] [address] Email: Financial Information Financial Class:HMO and PPO Plans Primary Plan Desc:[employer] Primary Plan Number:[id number] Secondary Plan Desc: Secondary Plan Number: Assessment Information LACE LACE Length of stay for Answers: Less than 1 day current admission Acuity / Level of Answers: No Care: Did the patient have an inpatient admission? # of Emergency department Answers: 1-2 visits in the last 6 months Score: 1 Date Signed: 07/06/2018 01:43 PM Electronically Signed By:Nu Brambila RN Intervention Information
== END 2018-07-06 14:02 | disposition home or self-care (01) ==
LOC: F2W 23:09
PROVIDERS: ADMIT Internal Medicine; ATTEND Internal Medicine
DX: M79.621 Pain in right upper arm (principal); I10 Essential (primary) hypertension; R00.1 Bradycardia, unspecified; Z98.890 Other specified postprocedural states; Z90.49 Acquired absence of other specified parts of digestive tract
CPT/HCPCS: 71046; 76770; 93005; 93971; 93975; G0378; 84484-ER

== ENCOUNTER → 2018-07-15 | Outpatient (CLI) | payer OTHER | LOC: FIMAGING 09:08 | PROVIDERS: ATTEND Surgery | DX: M79.621 Pain in right upper arm (principal) ==